=== PATIENT | male | born 1990 | race Two or more races ===

== ENCOUNTER 2020-04-30 17:31 | Emergency (ER) | payer OTHER ==
[~2020-04-30] VITALS: Ht 175.3 cm; Wt 68.0 kg
[2020-04-30] MEDS ORDERED: ONDANSETRON PF 4 MG/2 ML VIAL. ONE (18:17)
--- NOTE | 2020-04-30 18:25 | PHYS DOC ---
Past History Past Medical History: No Pertinent History Past Surgical History: Other Additional Past Surgical Histo: LEFT KNEE Alcohol Use: Occasionally Adult General Chief Complaint Chief Complaint: NAUSEA/VOMITING/[facility] HPI Patient is a healthy 30-year-old male presenting for generalized abdominal pain, nausea and vomiting. Onset of symptoms was roughly 48 hours ago without any known inciting event or trauma. Patient does report eating questionable fast food meal earlier in the day prior to symptom onset though. Nothing known makes better, p.o. intake makes worse. Patient reports no pain but admits vague abdominal cramping sensation and ongoing nausea. He has subsequently had x8 episodes of nonbloody nonbilious emesis since symptom onset usually related to attempted p.o. intake. 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 Otherwise denies any fever, URI-like symptoms, chest pain, shortness of breath, focal abdominal pain, changes in bladder or bowel function. Review of Systems Review of Systems Fourteen body systems of review of systems have been reviewed. See HPI for pertinent positives and negative responses, other hilton all other systems are negative, non-pertinent or non-contributory Current Medications Current Medications Current Medications Medications (Trade) Dose Ordered Sig/Bharat Start Time Stop Time Status Last Admin Dose Admin Ondansetron HCl (Zofran) 4 mg STK-MED ONCE 04/30/20 18:17 04/30/20 18:17 DC Allergies Allergies Allergies Coded Allergies Type Severity Reaction Last Updated Verified No Known Drug Allergies 04/30/20 No Physical Exam Physical Exam Constitutional: Pt is oriented to person, place, and time. Pt appears well-developed and well- nourished. HEENT: Head: Normocephalic and atraumatic. External ears unremarkable Conjunctivae and EOM are normal. Pupils are equal, round, and reactive to light. Oropharynx is clear and dry No hematomas or lacerations or abrasions to face or scalp OP clear, no blood, no malocclusion, dentition intact Nares clear, no nasal septal hematoma Midface stable Neck: C-spine midline nontender, no step-offs Cardiovascular: Normal rate, regular rhythm and normal heart sounds. Pulmonary/Chest: Effort normal and breath sounds normal. No respiratory distress. No wheezes. CTA bilaterally Abdominal: Soft. Bowel sounds are normal. Pt exhibits no distension. There is no tenderness. Nonacute abdomen Musculoskeletal: No bony tenderness to extremities, no deformities, full ROM extremities Chest wall stable Pelvis stable and non-tender No vertebral TTP and spine without stepoffs Neurological: Pt is alert and oriented to person, place, and time. Moving all extremities willfully, able to wiggle all fingers and toes Alert and oriented x 3 Sensation grossly intact Skin: Skin is warm and dry. No abrasions, no lacerations Psychiatric: Behavior is appropriate for situation Current Patient Data Vital Signs Vital Signs Date Time Temp Pulse Resp B/P (MAP) Pulse Ox O2 Delivery O2 Flow Rate FiO2 04/30/20 18:00 97.7 87 18 147/86 (106) 96 Room Air Lab Results Laboratory Tests Test 04/30/20 18:15 White Blood Count 3.9 x10^3/uL (4.0-11.0) Red Blood Count 4.40 x10^6/uL (4.30-5.70) Hemoglobin 14.5 g/dL (13.0-17.5) Hematocrit 43.3 % (39.0-53.0) Mean Corpuscular Volume 98 fL (79-100) Mean Corpuscular Hemoglobin 33 pg (25-35) Mean Corpuscular Hemoglobin Concent 34 g/dL (31-37) Red Cell Distribution Width 13.4 % (11.5-14.5) Platelet Count 240 x10^3/uL (140-400) Neutrophils (%) (Auto) 33 % (31-73) Lymphocytes (%) (Auto) 49 % (24-48) Monocytes (%) (Auto) 17 % (0-9) Eosinophils (%) (Auto) 1 % (0-3) Basophils (%) (Auto) 0 % (0-3) Neutrophils # (Auto) 1.3 x10^3uL (1.8-7.7) Lymphocytes # (Auto) 1.9 x10^3/uL (1.0-4.8) Monocytes # (Auto) 0.6 x10^3/uL (0.0-1.1) Eosinophils # (Auto) 0.0 x10^3/uL (0.0-0.7) Basophils # (Auto) 0.0 x10^3/uL (0.0-0.2) Sodium Level 143 mmol/L (136-145) Potassium Level 3.4 mmol/L (3.5-5.1) Chloride Level 104 mmol/L (98-107) Carbon Dioxide Level 27 mmol/L (21-32) Anion Gap 12 (6-14) Blood Urea Nitrogen 7 mg/dL (8-26) Creatinine 0.8 mg/dL (0.7-1.3) Estimated GFR (Cockcroft-Gault) 114.3 BUN/Creatinine Ratio 9 (6-20) Glucose Level 80 mg/dL (70-99) Calcium Level 8.2 mg/dL (8.5-10.1) Total Bilirubin 0.4 mg/dL (0.2-1.0) Aspartate Amino Transf (AST/SGOT) 76 U/L (15-37) Alanine Aminotransferase (ALT/SGPT) 63 U/L (16-63) Alkaline Phosphatase 90 U/L (46-116) Total Protein 7.5 g/dL (6.4-8.2) Albumin 3.7 g/dL (3.4-5.0) Albumin/Globulin Ratio 1.0 (1.0-1.7) Lipase 76 U/L (73-393) EKG EKG [] Radiology/Procedures Radiology/Procedures [] Heart Score HEART Score for Chest Pain: HEART Score for Chest Pain Response (Comments) Value History Slighlty/Non-Suspicious 0 Age < 45 0 Risk Factors No Risk Factors 0 Total 0 Risk Factors: Risk Factors: DM, Current or recent (<one month) smoker, HTN, HLP, family history of CAD, obesity. Risk Scores: Risk Factors: DM, Current or recent (<one month) smoker, HTN, HLP, family history of CAD, obesity. Course & Med Decision Making Course & Med Decision Making Pertinent Labs and Imaging studies reviewed. (See chart for details) Discussed most likely diagnosis of self-limiting abdominal pain, given history and nonconcerning physical exam I suspect gastroenteritis. Nonetheless, patient does have exposure to COVID-19 and this cannot be ruled out, patient subsequently tested and pending results Patient responded well to ER intervention. ER visit reviewed, joint decision to defer further diagnostic evaluation such as laboratory analysis and imaging given improvement in symptoms. Ongoing supportive care advised with strict instructions for self quarantining etc. given Strict return precautions discussed. I advised patient to contact his primary care physician first thing Sunday morning to review ER visit today and discuss need for outpatient follow-up when safe to do so. .All questions and concerns addressed prior to ER departure in stable condition with new prescription for Zofran Dragon Disclaimer Dragon Disclaimer This electronic medical record was generated, in whole or in part, using a voice recognition dictation system. Departure Departure: Impression: Primary Impression: Nausea vomiting and diarrhea Additional Impression: Person under investigation for COVID-19 Disposition: DC HOME SELF CARE/HOMELESS Condition: STABLE Referrals: PCP,NO (PCP) Patient Instructions: Nausea and Vomiting Additional Instructions: You were seen for nausea and vomiting. You most likely have a viral illness which should resolve in the next few days to a week. I cannot exclude COVID-19 infection given current pandemic. Your physical exam was reassuring. We tested you for COVID-19 but this test does not come back for 1 to 2 days. In the meantime you need to quarantine yourself at home away from all other individuals, especially those who are elderly or have any other chronic health issues or an immunocompromised status. You should return to the ED if you develop worsening cough, shortness of breath, chest pain, or any other new or concerning symptoms. Alternate Tylenol and ibuprofen as needed for body aches and pain. If your test does come back positive you need to quarantine herself for 10 days until symptom-free. You should make sure to drink plenty of fluids and get plenty of rest. You should return to the ED if you develop abdominal pain, fever > 100.3, black/bloody stools, black/bloody vomiting, cannot keep water down, or any other new or concerning symptoms. Scripts Ondansetron Hcl (ZOFRAN) 4 Mg Tablet 1 TAB PO PRN Q6-8HRS for NAUSEA, #15 TAB Prov: JERMAIN CASTELLANOS DO 04/30/20 Problem Qualifiers JERMAIN CASTELLANOS DO Apr 30, 2020 18:25
[2020-04-30] MEDS ORDERED: IV NORMAL SALINE 1,000ML 1,000 ML IV ONE (18:30)
[2020-04-30] MEDS ORDERED: ONDANSETRON PF 4 MG/2 ML VIAL. IVP ONE (18:30)
[2020-04-30 18:54] LABS: BASO % 0 % (0-3); EOS % 1 % (0-3); HEMATOCRIT 43.3 % (39.0-53.0); HEMOGLOBIN 14.5 g/dL (13.0-17.5); LYMPH # 1.9 x10^3/uL (1.0-4.8); LYMPH % 49 % (24-48); MEAN CORPUSCULAR HEMOGLOBIN 33 pg (25-35); MEAN CORPUSCULAR HGB CONC 34 g/dL (31-37); MEAN CORPUSCULAR VOLUME 98 fL (79-100); MONO # 0.6 x10^3/uL (0.0-1.1); MONO % 17 % (0-9); NEUT # 1.3 x10^3uL (1.8-7.7); NEUT % 33 % (31-73); PLATELET COUNT 240 x10^3/uL (140-400); RED CELL DISTRIBUTION WIDTH 13.4 % (11.5-14.5); WHITE BLOOD COUNT 3.9 x10^3/uL (4.0-11.0)
[2020-04-30 18:58] LABS: CALCIUM 8.2 mg/dL (8.5-10.1); CREATININE 0.8 mg/dL (0.7-1.3); GFR 114.3; POTASSIUM 3.4 mmol/L (3.5-5.1)
[2020-04-30 19:00] VITALS: BP 129/78
[2020-04-30 19:01] LABS: ALBUMIN 3.7 g/dL (3.4-5.0); TOTAL BILIRUBIN 0.4 mg/dL (0.2-1.0); TOTAL PROTEIN 7.5 g/dL (6.4-8.2)
[2020-04-30] MEDS ORDERED: ONDA4TAB7 PO (19:36)
[2020-04-30] MEDS ORDERED: POTASSIUM CHLORIDE 20 MEQ TABLET.ER. PO ONE (19:45)
== END 2020-04-30 19:58 | disposition home or self-care (01) ==
LOC: ER 17:31
DX: R11.2 Nausea with vomiting, unspecified (principal); Z20.818 Contact with and (suspected) exposure to other bacterial communicable diseases; R19.7 Diarrhea, unspecified; R10.84 Generalized abdominal pain; Z98.890 Other specified postprocedural states
CPT/HCPCS: 36415; 80053; 83690; 85025; 96361; 96374; 99283; C9803; J2405; J7030; U0003

== ENCOUNTER 2020-05-08 14:10 | Emergency (ER) | payer MEDICAID, OTHER ==
[~2020-05-08] VITALS: Ht 175.3 cm; Wt 68.2 kg
[~2020-05-08 14:10] MED LIST: ONDA4TAB7 PO
[2020-05-08 14:23] VITALS: BP 168/90
--- NOTE | 2020-05-08 14:29 | PHYS DOC ---
Past History Past Medical History: No Pertinent History Past Surgical History: Other Additional Past Surgical Histo: LEFT KNEE Alcohol Use: Occasionally Adult General Chief Complaint Chief Complaint: MULTIPLE COMPLAINTS HPI HPI Patient is a 30-year-old male presents to the emergency department reporting nausea and vomiting for the past 3 days. Patient states that he became nauseated after eating. And notes that he throws up immediately after eating for the past 3 days. Patient states that he finds food particles and/or water that he throws up. Patient noticed some bright red blood this morning that he threw up 3-4 times streaked in his vomitus. Patient states that the blood became darker this last time prior to arrival to the ER and this is what prompted him to come to the ER today. Patient reports off and on generalized abdominal discomfort while throwing up otherwise he does not have any abdominal pain or discomfort. Patient states that his last normal BM was a week ago, stating that he has loose stringy brown stools since. Patient denies cigarette smoking, denies drinking alcohol, denies illicit drug use. Patient denies any recent fever or chills, chest pain, chest palpitations, shortness of breath, cough, throat discomfort, nasal congestion. Is any rashes of his skin. Patient denies any dizziness or visual changes. Patient states that he has not been checked for the coronavirus this year and thinks he might have come in contact with someone with the COVID-19 virus and wishes to be checked today. Patient denies any other physical symptoms or physical illnesses. Review of Systems Review of Systems 14 body systems of review of systems have been reviewed. See HPI for pertinent positives and negative responses, otherwise all other systems are negative, nonpertinent or noncontributory. Current Medications Current Medications Patient denies taking home medications. Allergies Allergies Allergies Coded Allergies Type Severity Reaction Last Updated Verified No Known Drug Allergies 04/30/20 No Physical Exam Physical Exam Constitutional: Well developed, well nourished, no acute distress, non-toxic appearance. HENT: Normocephalic, atraumatic, bilateral external ears normal, oropharynx moist, no oral exudates, nose normal. Eyes: PERRLA, EOMI, conjunctiva normal, no discharge. Neck: Normal range of motion, no tenderness, supple, no stridor. Cardiovascular:Heart rate regular rhythm, no murmur, heart sounds S1-S2 aus cultation Lungs & Thorax: Bilateral breath sounds clear to auscultation all lung portillo. Abdomen: Bowel sounds normal, soft, no tenderness, no masses, no pulsatile masses. Skin: Warm, dry, no erythema, no rash. Back: No tenderness, no CVA tenderness. Extremities: No tenderness, no cyanosis, no clubbing, ROM intact, no edema. Neurologic: Alert and oriented X 3, normal motor function, normal sensory function, no focal deficits noted. Psychologic: Affect normal, judgement normal, mood normal. Current Patient Data Lab Results Laboratory Tests Test 05/08/20 14:42 05/08/20 15:15 05/08/20 15:53 05/08/20 15:57 White Blood Count 4.3 x10^3/uL Red Blood Count 4.70 x10^6/uL Hemoglobin 15.5 g/dL Hematocrit 45.9 % Mean Corpuscular Volume 98 fL Mean Corpuscular Hemoglobin 33 pg Mean Corpuscular Hemoglobin Concent 34 g/dL Red Cell Distribution Width 13.6 % Platelet Count 198 x10^3/uL Neutrophils (%) (Auto) 52 % Lymphocytes (%) (Auto) 36 % Monocytes (%) (Auto) 11 % Eosinophils (%) (Auto) 0 % Basophils (%) (Auto) 0 % Neutrophils # (Auto) 2.2 x10^3uL Lymphocytes # (Auto) 1.6 x10^3/uL Monocytes # (Auto) 0.5 x10^3/uL Eosinophils # (Auto) 0.0 x10^3/uL Basophils # (Auto) 0.0 x10^3/uL Sodium Level 139 mmol/L Potassium Level 3.5 mmol/L Chloride Level 98 mmol/L Carbon Dioxide Level 28 mmol/L Anion Gap 13 Blood Urea Nitrogen 6 mg/dL Creatinine 0.8 mg/dL Estimated GFR (Cockcroft-Gault) 114.3 BUN/Creatinine Ratio 8 Glucose Level 78 mg/dL Lactic Acid Level 2.5 mmol/L Calcium Level 9.2 mg/dL Total Bilirubin 0.6 mg/dL Aspartate Amino Transf (AST/SGOT) 124 U/L Alanine Aminotransferase (ALT/SGPT) 88 U/L Alkaline Phosphatase 92 U/L Total Protein 8.5 g/dL Albumin 4.2 g/dL Albumin/Globulin Ratio 1.0 Amylase Level 51 U/L Urine Collection Type Unknown Urine Color Luci Urine Clarity Clear Urine pH 7.5 Urine Specific Ravenel 1.020 Urine Protein 100 mg/dl Urine Glucose (UA) Neg mg/dL Urine Ketones (Stick) Neg mg/dL Urine Blood Neg Urine Nitrite Neg Urine Bilirubin Neg Urine Urobilinogen Dipstick 0.2 mg/dL Urine Leukocyte Esterase Neg Urine RBC Rare /HPF Urine WBC Occ /HPF Urine Squamous Epithelial Cells Few /LPF Urine Bacteria 0 /HPF Urine Opiates Screen Neg Urine Methadone Screen Neg Urine Barbiturates Neg Urine Phencyclidine Screen Neg Urine Amphetamine/Methamphetamine Neg Urine Benzodiazepines Screen Neg Urine Cocaine Screen Neg Urine Cannabinoids Screen Neg Urine Ethyl Alcohol Pos Ethyl Alcohol Level 157 mg/dL Salicylates Level < 2.8 mg/dL Salicylate Last Dose Date 05/08/20 Salicylate Last Dose Time 1600 Acetaminophen Level < 2.0 mcg/mL Acetaminophen Last Dose Date 05/08/20 Acetaminophen Last Dose Time 1600 Current Medications Medications (Trade) Dose Ordered Sig/Bharat Route PRN Reason Start Time Stop Time Status Last Admin Dose Admin Ondansetron HCl (Zofran) 4 mg STK-MED ONCE .ROUTE 05/08/20 14:31 05/08/20 14:31 DC Ketorolac Tromethamine (Toradol 30mg Vial) 30 mg STK-MED ONCE .ROUTE 05/08/20 14:31 05/08/20 14:31 DC Famotidine (Pepcid Vial) 20 mg STK-MED ONCE .ROUTE 05/08/20 14:31 05/08/20 14:31 DC Sodium Chloride 1,000 ml @ 1,000 mls/hr 1X ONCE IV 05/08/20 14:30 05/08/20 15:29 DC 05/08/20 14:37 Famotidine (Pepcid Vial) 20 mg 1X ONCE IVP 05/08/20 14:30 05/08/20 14:34 DC 05/08/20 14:38 Ondansetron HCl (Zofran) 4 mg 1X ONCE IVP 05/08/20 14:30 05/08/20 14:34 DC 05/08/20 14:38 Ketorolac Tromethamine (Toradol 30mg Vial) 30 mg 1X ONCE IVP 05/08/20 14:45 05/08/20 14:49 DC 05/08/20 14:45 Sodium Chloride 1,000 ml @ 1,000 mls/hr 1X ONCE IV 05/08/20 16:15 05/08/20 17:14 DC 05/08/20 16:15 EKG EKG [] Radiology/Procedures Radiology/Procedures STATUS: REG ER ORD. PHYSICIAN: IGNACIA FRANCIS APRN REASON: VOMITING PROCEDURE: KUB Exam: Abdomen one view INDICATION: Vomiting TECHNIQUE: Supine view the abdomen Comparisons: None FINDINGS: Air and stool are noted throughout the colon to level the rectum in a nonobstructive bowel gas pattern. No suspicious masses or calcifications. Visualized osseous structures are unremarkable. IMPRESSION: Nonobstructive bowel gas pattern. Electronically signed by: Jayson Townsend MD (05/08/2020 4:56 PM) [facility] DICTATED AND SIGNED BY: JAYSON TOWNSEND MD DATE: 05/08/201654 CC: IGNACIA FRANCIS APRN; PCP,NO ~MTH0 0 Heart Score Risk Factors: Risk Factors: DM, Current or recent (<one month) smoker, HTN, HLP, family history of CAD, obesity. Risk Scores: Risk Factors: DM, Current or recent (<one month) smoker, HTN, HLP, family history of CAD, obesity. Course & Med Decision Making Course & Med Decision Making Pertinent Labs and Imaging studies reviewed. (See chart for details) 30-year-old male presents emergency department complaint of nausea vomiting x3 days noting that it happens directly after eating. Patient noticed blood in his vomitus nonbilious vomiting. Patient denied abdominal discomfort during physical examination. ER work-up was started. Patient's labs concerning for dehydration, patient did state that he does not drink alcohol, liver enzymes slightly elevated from previous visit 2 weeks ago, a serum alcohol was ordered along with a urine drug test, acetaminophen level, salicylate level. Patient's blood alcohol came back at 156, spoke with patient again about EtOH consumption, patient then admitted to drinking only 2 beers, discussed with patient that 2 beers cannot raise blood alcohol level to that height, patient then states that he sometimes drinks whiskey as well. Patient states that he does not drink that often, patient then stated that he drinks only when he needs to however he noticed that he has been drinking more often than usual. Discussed with patient that he may need to get help with alcoholism, will discharge to home with prescription for Zofran ODT. Given patient strict instructions for return to ER precautions, strict instructions to follow-up with help for alcoholism, patient gave verbal understanding of discharge home instructions return to ER precautions follow-up with primary care doctor patient had no further questions or concerns discharged home without incident Dragon Disclaimer Dragon Disclaimer This electronic medical record was generated, in whole or in part, using a voice recognition dictation system. Departure Departure: Impression: Primary Impression: Nausea & vomiting Additional Impression: Alcoholism /alcohol abuse Disposition: 01 DC HOME SELF CARE/HOMELESS Condition: IMPROVED Referrals: PCP,NO (PCP) Patient Instructions: Alcohol Problems, Nausea and Vomiting Additional Instructions: You have been evaluated today for nausea and vomiting, you will be sent with a prescription for nausea called Zofran ODT. This pill you did not swallow like a normal pill you this put it on your tongue and let it dissolve as if it were a cough drop. Your alcohol level was very high, I encourage you to seek help regarding your alcoholism. Please follow-up with your primary care doctor soon, return to the emergency department for worsening symptoms or other concerns. EMERGENCY DEPARTMENT GENERAL DISCHARGE INSTRUCTIONS Thank you for coming to [facility] (ED) today and trusting us with you care. We trust that you had a positivie experience in our Emergency Department. If you wish to speak to the department management, you may call the director at [phone]. YOUR FOLLOW UP INSTRUCTIONS ARE FOLLOWS: 1. Do you have a private Doctor? If you do not have a private doctor, please ask for a resource list of physicians or clinics that may be able to assist you with follow up care. 2. The Emergency Physician has interpreted your x-rays. The X-Ray specialist will also review them. If there is a change in the findings, you will be notified in 48 hours when at all possible. 3. A lab test or culture has been done, your results will be reviewed and you will be notified if you need a change in treatment. ADDITIONAL INSTRUCTIONS AND INFORMATION: 1. Your care today has been supervised by a physician who is specially trained in emergency care. Many problems require more than one evaluation for a complete diagnosis and treatment. We recommend that you schedule your follow up appointment as recommended to ensure complete treatment of you illness or injury. If you are unable to obtain follow up care and continue to have a problem, or if your condition worsens, we recommend that you return to the ED. 2. We are not able to safely determine your condition over the phone nor are we able to give sound medical advice over the phone. For these safety reasons, if you call for medical advice we will ask you to come to the ED for further evaluation. 3. If you have any questions regarding these discharge instructions please call the ED at [phone]. SAFETY INFORMATION: In the interest of safety, wellness, and injury prevention; we encourage you to wear your sealbelt, if you smoke; quite smoking, and we encourage family to use a protective helmet for bicycling and other sporting events that present an increased risk for head injury. IF YOUR SYMPTOMS WORSEN OR NEW SYMPTOMS DEVELOP, OR YOU HAVE CONCERNS ABOUT YOUR CONDITION; OR IF YOUR CONDITION WORSENS WHILE YOU ARE WAITING FOR YOUR FOLLOW UP APPOINTMENT; EITHER CONTACT YOUR PRIMARY CARE DOCTOR, THE PHYSICIAN WHOSE NAME AND NUMBER YOU WERE GIVEN, OR RETURN TO THE ED IMMEDIATELY. Scripts Ondansetron Hcl (ZOFRAN) 4 Mg Tablet 4 MG PO TID PRN PRN for NAUSEA, #9 TAB 0 Refills Prov: IGNACIA FRANCIS APRN 05/08/20 Problem Qualifiers Primary Impression: Nausea & vomiting Vomiting type: unspecified Vomiting Intractability: non-intractable Qualified Codes: R11.2 - Nausea with vomiting, unspecified IGNACIA FRANCIS APRN May 08, 2020 14:29
[2020-05-08] MEDS ORDERED: FAMOTIDINE 20 MG/2 ML VIAL IVP ONE (14:30)
[2020-05-08] MEDS ORDERED: ONDANSETRON PF 4 MG/2 ML VIAL. IVP ONE (14:30)
[2020-05-08] MEDS ORDERED: IV NORMAL SALINE 1,000ML 1,000 ML IV ONE ×2 (14:30→16:15)
[2020-05-08] MEDS ORDERED: FAMOTIDINE 20 MG/2 ML VIAL ONE (14:31)
[2020-05-08] MEDS ORDERED: ONDANSETRON PF 4 MG/2 ML VIAL. ONE (14:31)
[2020-05-08] MEDS ORDERED: KETOROLAC 30 MG/ML VIAL. ONE (14:31)
[2020-05-08] MEDS ORDERED: KETOROLAC 30 MG/ML VIAL. IVP ONE (14:45)
[2020-05-08 15:10] LABS: BASO % 0 % (0-3); EOS % 0 % (0-3); HEMATOCRIT 45.9 % (39.0-53.0); HEMOGLOBIN 15.5 g/dL (13.0-17.5); LYMPH # 1.6 x10^3/uL (1.0-4.8); LYMPH % 36 % (24-48); MEAN CORPUSCULAR HEMOGLOBIN 33 pg (25-35); MEAN CORPUSCULAR HGB CONC 34 g/dL (31-37); MEAN CORPUSCULAR VOLUME 98 fL (79-100); MONO # 0.5 x10^3/uL (0.0-1.1); MONO % 11 % (0-9); NEUT # 2.2 x10^3uL (1.8-7.7); NEUT % 52 % (31-73); PLATELET COUNT 198 x10^3/uL (140-400); RED CELL DISTRIBUTION WIDTH 13.6 % (11.5-14.5); WHITE BLOOD COUNT 4.3 x10^3/uL (4.0-11.0)
[2020-05-08 15:15] LABS: CALCIUM 9.2 mg/dL (8.5-10.1); CREATININE 0.8 mg/dL (0.7-1.3); GFR 114.3; POTASSIUM 3.5 mmol/L (3.5-5.1)
[2020-05-08 15:20] LABS: ALBUMIN 4.2 g/dL (3.4-5.0); TOTAL BILIRUBIN 0.6 mg/dL (0.2-1.0); TOTAL PROTEIN 8.5 g/dL (6.4-8.2)
[2020-05-08 15:52] LABS: BARBITURATES NEG (NEG); BENZODIAZEPINES NEG (NEG); CANNABINOIDS NEG (NEG); COCAINE NEG (NEG); METHADONE NEG (NEG); OPIATES NEG (NEG); PHENCYCLIDINE NEG (NEG)
[2020-05-08 15:54] LABS: AMPHETAMINE/METHAMPHETAMINE NEG (NEG)
[2020-05-08 16:11] LABS: BACTERIA,URINE 0 /HPF (0-FEW); BILIRUBIN,URINE NEG (NEG); CLARITY,URINE CLEAR; COLOR,URINE AMBER; GLUCOSE,URINE NEG (NEG); NITRITE,URINE NEG (NEG); RBC,URINE RARE /HPF (0-2); SQUAMOUS EPITHELIAL CELL,UR FEW /LPF; UROBILINOGEN,URINE 0.2 mg/dL (0.2 mg/dL); WBC,URINE OCC /HPF (0-4)
--- NOTE | 2020-05-08 16:58 | RAD ---
Exam: Abdomen one view INDICATION: Vomiting TECHNIQUE: Supine view the abdomen Comparisons: None FINDINGS: Air and stool are noted throughout the colon to level the rectum in a nonobstructive bowel gas patter n. No suspicious masses or calcifications. Visualized osseous structures are unremarkable. IMPRESSION: Nonobstructive bowel gas pattern. Electronically signed by: Jayson Hernandes MD (05/08/2020 4:56 PM) [facility]
[2020-05-08 17:09] LABS: ACETAMIN < 2.0 mcg/mL (10-30); SALIC < 2.8 mg/dL (2.8-20.0)
[2020-05-08] MEDS ORDERED: ONDA4TAB7 PO (18:47)
== END 2020-05-08 19:00 | disposition home or self-care (01) ==
LOC: ER 14:10
DX: R11.2 Nausea with vomiting, unspecified (principal); F10.20 Alcohol dependence, uncomplicated; R19.7 Diarrhea, unspecified; Z20.828 Contact with and (suspected) exposure to other viral communicable diseases; Y90.6 Blood alcohol level of 120-199 mg/100 ml
CPT/HCPCS: 36415; 74018; 80053; 80307; 80329; 81001; 82150; 83605; 85025; 96361; 96374; 96375; 99284; C9803; G0480; J1885; J2405; J3490; J7030; U0003